=== PATIENT | female | born 1980 | race Caucasian/White ===

== ENCOUNTER → 2017-06-08 | Outpatient (CLI) | payer OTHER | LOC: MC.RAD 08:52 | DX: Z12.31 Encounter for screening mammogram for malignant neoplasm of breast (principal) ==

== ENCOUNTER → 2019-06-09 | Outpatient (CLI) | payer BC | LOC: MC.RAD 10:31 | DX: Z12.31 Encounter for screening mammogram for malignant neoplasm of breast (principal) ==

== ENCOUNTER → 2020-05-15 | Outpatient (CLI) | payer BC | LOC: MC.RAD 17:49 | DX: Z12.31 Encounter for screening mammogram for malignant neoplasm of breast (principal); N64.9 Disorder of breast, unspecified ==

== ENCOUNTER → 2021-06-25 | Outpatient (CLI) | payer BC | LOC: MC.RAD 07:42 | DX: Z12.31 Encounter for screening mammogram for malignant neoplasm of breast (principal); N63.10 Unspecified lump in the right breast, unspecified quadrant ==

== ENCOUNTER → 2021-06-30 | Outpatient (CLI) | payer BC | LOC: MC.RAD 14:46 | DX: N60.01 Solitary cyst of right breast (principal) ==

== ENCOUNTER → 2022-07-07 | Outpatient (CLI) | payer BC | LOC: MC.RAD 09:26 | DX: N63.10 Unspecified lump in the right breast, unspecified quadrant (principal) ==

== ENCOUNTER → 2022-07-10 | Outpatient (CLI) | payer BC | LOC: MC.RAD 09:17 | DX: N60.01 Solitary cyst of right breast (principal) ==

== ENCOUNTER → 2023-08-12 | Outpatient (CLI) | payer BC | LOC: MC.RAD 13:57 | DX: N60.11 Diffuse cystic mastopathy of right breast (principal) ==